=== PATIENT | male | born 1945 | race Two or more races ===

== ENCOUNTER → 2016-12-21 | Outpatient (CLI) | payer MEDICARE, OTHER ==
[~2016-12-21] MED LIST: ASPI81 PO; SIMV-261 PO; VALS40TA4 PO
== END | disposition home or self-care (01) ==
LOC: RADPV 09:36
PROVIDERS: ATTEND Family Medicine
DX: Z20.1 Contact with and (suspected) exposure to tuberculosis (principal)

== ENCOUNTER → 2017-05-19 | Outpatient (CLI) | payer MEDICARE, OTHER | END | disposition home or self-care (01) | LOC: LABPV 07:27 | PROVIDERS: ATTEND Ophthalmology | DX: E10.9 Type 1 diabetes mellitus without complications (principal) | CPT/HCPCS: 83036 ==

== ENCOUNTER → 2017-10-12 | Outpatient (CLI) | payer MEDICARE, OTHER | END | disposition home or self-care (01) | LOC: LABPV 07:10 | PROVIDERS: ATTEND Ophthalmology | DX: E10.9 Type 1 diabetes mellitus without complications (principal) | CPT/HCPCS: 83036 ==

== ENCOUNTER 2020-02-09 10:12 | Emergency (ER) | payer MEDICARE, OTHER ==
[~2020-02-09] VITALS: Ht 165.1 cm; Wt 81.8 kg
[~2020-02-09 10:12] MED LIST changes: +ASPI-728 PO; -ASPI81 PO
[2020-02-09] MEDS ORDERED: METF-960 PO (10:18)
[2020-02-09] MEDS ORDERED: GLIP10 PO (10:18)
[2020-02-09] MEDS ORDERED: ACETAMINOPHEN 325 MG TABLET PO ONE (11:00)
[2020-02-09] MEDS ORDERED: LIDOCAINE 5% TRANSDERMAL PATCH TD ONE (11:00)
[2020-02-09 11:50] VITALS: BP 159/98
[2020-02-09 19:16] LABS: GLUCOSE,POINT OF CARE 258 MG/DL (70-110)
== END 2020-02-09 12:01 | disposition home or self-care (01) ==
LOC: EMS 10:13
DX: R07.89 Other chest pain (principal); M54.5 Low back pain; E11.9 Type 2 diabetes mellitus without complications; E78.00 Pure hypercholesterolemia, unspecified; I10 Essential (primary) hypertension; Z79.84 Long term (current) use of oral hypoglycemic drugs; Z79.82 Long term (current) use of aspirin; W01.0XXA Fall on same level from slipping, tripping and stumbling without subsequent striking against object, initial encounter; Y93.89 Activity, other specified; Y92.89 Other specified places as the place of occurrence of the external cause; Y99.8 Other external cause status